=== PATIENT | female | born 1990 ===

== ENCOUNTER 2021-02-13 13:50 | Outpatient (CLI) | payer OTHER | END 2021-02-13 15:16 | disposition home or self-care (01) | LOC: PRENATAL 13:50 | PROVIDERS: ATTEND Obstetrics & Gynecology Maternal & Fetal Medicine | DX: Z36.89 Encounter for other specified antenatal screening (principal); O36.80X1 Pregnancy with inconclusive fetal viability, fetus 1; Z3A.13 13 weeks gestation of pregnancy ==

== ENCOUNTER 2021-03-31 13:07 | Outpatient (CLI) | payer OTHER | END 2021-03-31 15:20 | disposition home or self-care (01) | LOC: PRENATAL 13:07 | PROVIDERS: ATTEND Obstetrics & Gynecology Maternal & Fetal Medicine | DX: O35.0XX1 Maternal care for (suspected) central nervous system malformation in fetus, fetus 1 (principal); O35.3XX1 Maternal care for (suspected) damage to fetus from viral disease in mother, fetus 1; O98.512 Other viral diseases complicating pregnancy, second trimester; Z36.89 Encounter for other specified antenatal screening; Z3A.20 20 weeks gestation of pregnancy ==

== ENCOUNTER 2021-06-23 10:04 | Outpatient (CLI) | payer OTHER | END 2021-06-23 11:15 | disposition home or self-care (01) | LOC: PRENATAL 10:04 | PROVIDERS: ATTEND Obstetrics & Gynecology Maternal & Fetal Medicine | DX: O26.849 Uterine size-date discrepancy, unspecified trimester (principal); O35.0XX0 Maternal care for (suspected) central nervous system malformation in fetus, not applicable or unspecified ==

== ENCOUNTER 2021-07-25 09:09 | Inpatient (IN) | payer OTHER ==
[~2021-07-25] VITALS: Ht 152.4 cm; Wt 83.5 kg
[2021-08-01] MEDS ORDERED: ZYRTEC10 MG PO (14:00)
[2021-08-01] MEDS ORDERED: PRENATAL CAPLE1 EAC1 PO (14:00)
[2021-08-01] MEDS ORDERED: BUDESONIDE0.25 MG/1 (14:27)
[2021-08-01] MEDS ORDERED: TACROLIMUS30 G1 (14:27)
[2021-08-01] MEDS ORDERED: METRONIDAZOLE45 G1 (14:27)
== END 2021-08-04 14:51 | disposition home or self-care (01) | DRG 806 ==
LOC: SURH → LDR 08-01 12:49 → OB/GYN 08-01 12:49
PROVIDERS: ADMIT Obstetrics & Gynecology; ATTEND Obstetrics & Gynecology
PROC: 10E0XZZ Delivery of Products of Conception, External Approach (ICD-10-PCS; principal; 2021-08-01)
PROC: 0HQ9XZZ Repair Perineum Skin, External Approach (ICD-10-PCS; 2021-08-01)
PROC: 3E033VJ Introduction of Other Hormone into Peripheral Vein, Percutaneous Approach (ICD-10-PCS; 2021-08-01)
PROC: 4A1HXCZ Monitoring of Products of Conception, Cardiac Rate, External Approach (ICD-10-PCS; 2021-08-01)
DX: O70.0 First degree perineal laceration during delivery (principal); O41.03X0 Oligohydramnios, third trimester, not applicable or unspecified; Z37.0 Single live birth; Z3A.37 37 weeks gestation of pregnancy; Z20.822 Contact with and (suspected) exposure to COVID-19

== ENCOUNTER → 2021-08-01 | Outpatient (CLI) | payer OTHER ==
[~2021-08-01] MED LIST: BUDESONIDE0.25 MG/1; METRONIDAZOLE45 G1; PRENATAL CAPLE1 EAC1 PO; TACROLIMUS30 G1; ZYRTEC10 MG PO
== END | disposition home or self-care (01) ==
LOC: NST 00:52
PROVIDERS: ATTEND Obstetrics & Gynecology
DX: Z34.83 Encounter for supervision of other normal pregnancy, third trimester (principal)